=== PATIENT | female | born 1995 | race Caucasian/White ===

== ENCOUNTER 2024-11-19 16:32 | Inpatient (IN) | payer BC, SELFPAY ==
[2024-11-19] VITALS (42 sets, daily range): BP systolic 97–147; BP diastolic 50–74; PULSE 70–107; RESP 16–18; TEMP 36.7–37.1; O2SAT 99–100; BMI 28.2
[2024-11-19] MEDS: AMPICILLIN 2 GM in 0.9 % SODIUM CHLORIDE Mini-bag 100 ML IVPB (17:14)
[2024-11-19 17:18] LABS: Basophils Percent Auto 0.2 % (0.0-3.0); Hematocrit 31.2 % (33.0-51.0); Hemoglobin* 10.8 gm/dL (12.0-16.0); Immature Granulocytes Pct Auto 0.7 %; Lymphocytes Percent Auto 6.3 % (20-44); Mean Corpuscular HGB Conc 35 gm/dL (32-36); Mean Corpuscular Hemoglobin 31 pg (26-34); Mean Corpuscular Volume 89 fL (80-100); Neutrophils Percent Auto 87.8 % (42.0-72.0); Platelet Count* 202 K/uL (140-440); RDW Coefficient of Variation % 12.9 % (11.5-15.5); Red Blood Count 3.51 m/uL (4.00-5.20)
[2024-11-19 17:39] LABS: Slide Review Reflex Yes; White Blood Count* 26.57 K/uL (4.50-11.00)
--- NOTE | 2024-11-19 17:52 | PM.OBHPLI ---
OB - H&P: HPI Labor/Induction History of Present Illness Time Seen by Provider: 17:53 Date Seen: 11/19/24 Chief Complaint: The patient is a 29 year old 6 para 2 at 37 4/7 weeks gestation by LMP c/w 11WK US, who presents from clinic transitioning into active labor. Chief complaint: Maternity : 6 Para: 2 Date of last menstrual period: 03/01/24 Estimated date of delivery: 12/06/24 Gestational age based on last menstrual period: 37 Narrative: Christine Cruz is a 29 year old 6 para 2 at 37 4/7 weeks gestation by LMP c/w 11WK US, who presents from clinic transitioning into active labor. pt was seen for routine visit today in clinic this afternoon and reported contractions started last night. Has overall tight feeling that is constant in lower abdomen and back and then feels 30 sec contraction about every hour. 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 Then noticed again upon waking up this morning. Notices more as working today and active. No LOF. +FM. Headache last night resolved on own. Had influenza couple weeks ago, resolved. pt was checking in clinic and was 2.5/70/-3, posterior. She was placed on monitor and FHT's 140's with moderate variability with accels but not 2 in 20 min. There as possible prolonged decel that appeared initially like change in baseline slowly decreasing to 120 and staying there for 4minutes then increasing back to 140's. No other decels. Contractions every 2-5min and pt feeling She was rechecked 1 hour later and 3/80/-2. pt sent to L&D for admission History of Present Dating criteria: based on LMP care: good care Ultrasounds: normal 1st trimester US (11 wk US c/w with LMP, subchorionic hermorrage ) and abnormal US findings (initial antomy scan with HC 7%. Declined level 2, repeat level 1 US with HC 23%) complications comment: hx delivery, had serial cervical length US 14-24wks wnl Medical complications: none Labs Blood type: A (-) negative Rubella: immune RPR/VDLR: nonreactive GBS status: positive HBsAG: negative Meds Home Medications and Allergies Home Medications ?Medication ?Instructions ?Recorded ?Confirmed ?Type docosahexaenoic acid PO 11/19/24 History ferrous sulfate 325 mg (65 mg 325 mg PO DAILY 11/19/24 11/19/24 History iron) tablet (FeroSul) Allergies Allergy/AdvReac Type Severity Reaction Status Date / Time No Known Drug Allergies Allergy Verified 11/19/24 17:04 OB - H&P: Exam Physical Exam: Vital signs: Temp Pulse BP Pulse Ox 98.5 F 107 H 132/64 99 11/19/24 16:55 11/19/24 16:48 11/19/24 16:48 11/19/24 16:55 Constitutional: Constitutional: no acute distress (between contractions, uncomfortable with contractions) Routine HEENT Exam: Head: Present atraumatic and normal inspection Eye: Present normal appearance ENT: Present mucous membranes moist Routine Respiratory Exam: Respiratory: Present CTA bilaterally Routine Cardiovascular Exam: Cardiovascular: RRR Routine Abdominal Exam: Abdominal: Absent tenderness Detailed Labor and Delivery Exam: Patient Gravid: Yes Dilation (cm): 3 Effacement (%): 80 Cervix position: mid Consistency: medium Contraction frequency (min): 2 Fetus (Single): Station: -2 Amniotic Membrane Status: intact Heart Rate Baseline: 135 Monitor Accelerations: Present Monitor Decelerations: None (initially on monitor on arrival had approximately 12min period with minimal variability and ?2 subtle late decels. resolved and over next hour good variability and no further late decels) Rolled Gold Plater Variability: Moderate (6-25) OB - Results Labs Labs: Short CBC 11/19/24 Range/Units 17:10 WBC 26.57 H* (4.50-11.00) K/uL Hgb 10.8 L (12.0-16.0) gm/dL Hct 31.2 L (33.0-51.0) % Plt Count 202 (140-440) K/uL OB - Problem Based A/P Additional Plan (1) Term : Status: Acute (2) Positive GBS test: Status: Acute Plan Transitioning into active labor at clinic, admit with expectant management. GBS positive, abx started
[2024-11-19 18:07] LABS: Slide Review Acceptable Review (Acceptable)
[2024-11-19] MEDS: LACTATED RINGERS 1000 ML 1,000 ML 500 ML IV ×2 (18:31→21:12)
--- NOTE | 2024-11-19 20:57 | PM.OBPNL ---
Subjective Time Seen by Provider: 20:35 Date Seen: 11/19/24 Narrative: pt reports contractions seem to be spreading apart some, still feels but not seem as strong or frequent. When first arrived L&D reports noted golf ball sized blood clot when used bathroom. She flushed, RN was not able evaluate. No further clots. pad with little blood but not much per pt. 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 Not persistent) Plan Plan: Cervix slowly changing discussed expectant management vs option AROM. pt would like AROM after she gets epidural. Will wait until has had abx for 4 hours as well. pt in agreement with plan.
[2024-11-19] MEDS: AMPICILLIN 1 GM in 0.9 % SODIUM CHLORIDE Mini-bag 100 ML IVPB (21:11)
[2024-11-19] MEDS: LIDOCAINE 2% (PF) 5 ML VIAL EPIDURAL (21:31)
[2024-11-19] MEDS: ROPIVACAINE 0.2% 100 ml 100 ML 12 MG EPIDURAL (21:35)
--- NOTE | 2024-11-19 21:39 | PM.ANBPRC ---
PFSH PFS Surgical History (Updated 11/19/24 @ 18:14 by Sravani Oconnor DO) Caret teeth extracted ?K08.409 - Partial loss of teeth, unspecified cause, unspecified class (ICD-10) Social History Smoking Status: Former smoker Meds Home Medications and Allergies Home Medications ?Medication ?Instructions ?Recorded ?Confirmed ?Type docosahexaenoic acid PO 11/19/24 History ferrous sulfate 325 mg (65 mg 325 mg PO DAILY 11/19/24 11/19/24 History iron) tablet (FeroSul) Allergies Allergy/AdvReac Type Severity Reaction Status Date / Time No Known Drug Allergies Allergy Verified 11/19/24 17:04 Results Labs Labs: Laboratory Results - last 24 hr 11/19/24 17:10 WBC 26.57 H* RBC 3.51 L Hgb 10.8 L Hct 31.2 L MCV 89 MCH 31 MCHC 35 RDW Coeff of Vitaliy 12.9 Plt Count 202 Neut % (Auto) 87.8 H Lymph % (Auto) 6.3 L [place] % (Auto) 5.0 Eos % (Auto) 0.0 Baso % (Auto) 0.2 Neut # (Auto) 23.30 H Lymph # (Auto) 1.70 [place] # (Auto) 1.30 H Eos # (Auto) 0.00 Baso # (Auto) 0.10 Abs Immat Gran (auto) 0.20 Imm/Tot Granulo (auto) 0.7 Diff Slide Review Acceptable Review Blood Type A Negative Antibody Screen POSITIVE Vital Signs Vital Signs: Last Vital Signs Temp 98.2 F 11/19/24 20:31 Pulse 92 11/19/24 21:37 Resp 16 11/19/24 20:31 BP 118/65 11/19/24 21:37 Pulse Ox 100 11/19/24 21:35 Weight: 79.424 kg Height: 167.64 cm Anesthesia Procedures Epidural Insertion Patient Location: OB Start Time: 21:15 Stop Time: 21:45 Start Date: 11/19/24 Stop Date: 11/19/24 Reason for Block: primary anesthetic Patient Position: sitting Performed By: Jean-Pierre Baumann Preanesthetic Checklist: IV checked, risks and benefits discussed, surgical consent, monitors and equipment checked, pre-op evaluation, timeout performed and anesthesia consent Prep: chlorhexidine gluconate Monitoring: blood pressure monitoring, panel monitor, continuous pulse oximetry and heart rate Approach: midline Vertebral Space: lumbar (1-5) Needle Type: Tuohy needle Injection Technique: continuous catheter (catheter) Needle gauge: 17 Needle Length (cm): 10 cm Needle Insertion Depth (cm): 5 Catheter Gauge: 19 Catheter Type: multi-orifice Catheter at skin depth (cm): 10 Test Dose Result: negative and lidocaine 1.5% with epinephrine 1 to 200,000
[2024-11-19] MEDS: PHENYLEPHRINE 100 MCG/ML SYRINGE IVP ×5 (21:48→22:49)
--- NOTE | 2024-11-19 22:28 | PM.OBPNL ---
Subjective Time Seen by Provider: 10:15 Date Seen: 11/19/24 Narrative: Epidural in place, pt comfortable but still feels some contraction on right side. 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 Not persistent) Plan Plan: -epidural in place -AROM with clear fluid -RN gave 3 doses phenylephrine for low bp per RN. Now after switching positions, BP up for first time at 2219, 5 min prior was 116/64, and 4 min later repeat is 99/57. Monitor for now. -expectant management
[2024-11-19] MEDS: ePHEDrine sulfate 5 MG/ML inj 10 MG IVP (22:53)
[2024-11-20] VITALS (32 sets, daily range): BP systolic 83–142; BP diastolic 50–76; PULSE 60–100; RESP 16–18; TEMP 36.3–37.1; O2SAT 99–100
[2024-11-20] MEDS: LACTATED RINGERS 1000 ML 1,000 ML 125 ML IV (00:18)
[2024-11-20] MEDS: ePHEDrine sulfate 5 MG/ML inj 10 MG IVP (00:26)
[2024-11-20] MEDS: AMPICILLIN 1 GM in 0.9 % SODIUM CHLORIDE Mini-bag 100 ML IVPB (01:24)
[2024-11-20] MEDS: OXYTOCIN 30 unit/500 ML in NS 30 UNIT/500 ML BAG 300 UNIT IVPB (03:23)
--- NOTE | 2024-11-20 04:00 | W.PM.VAGDEL1 ---
Procedure Delivery date: 11/20/24 Procedure Done: Global Procedure Details: The patient is a 29 year-old admitted on 37 at 5 Weeks, 7 Days gestation for early labor.? Cervical exam on admission was 3 cm/80 % effaced/-2 station with membranes intact in vertex presentation.? Contractions were every 2-5 minutes.? heart rate demonstrated baseline 140 bpm with moderate variability, + accelerations, a few late decelerations initially.?Pt slowly progressed initially and requested epidural prior to AROM. AROM occurred at 2114 with clear fluid. ? Labor Analgesia:? Epidural ? Pitocin:? no ? Labor onset:? 2032 ? Complete:? 305 ? Pushing:? 309 ? heart tones during second stage were 140bpm with decel with pushing down to 110, improved to baseline between pushes ? At 321 a viable male delivered in vertex presentation over intact perineum via spontaneous vaginal delivery.? was placed on maternal abdomen.? Cord was clamped and cut after a 60 second delay.? Nose and mouth were bulb suctioned.? Infant weight pending.? 9 at 1 minute and 9 at 5 minutes.? Shoulder dystocia: no.? Nuchal cord: no. ? Placenta delivered spontaneously and complete at 0339 with a 3 vessel cord. ? Mother and were stable after delivery. ? Lacerations:? 2nd degree midline, repaired with 3-0vicryl by standard technique, +anterior labial abrasions, hemostatic and not repaired ? Blood loss: 150 mL. Blood loss measurement type: QBL ? Sponge and needles counts are correct. Estimated blood loss (mL): 150 Anesthesia type: Epidural [place] Infant Gender: Male presentation: vertex Placental Delivery Description: Spontaneous Cord Description: 3 Vessels total score - 1 minute: 9 total score - 5 minute: 9
[2024-11-20] MEDS: IBUPROFEN 600 MG TABLET PO (04:53)
--- NOTE | 2024-11-20 09:55 | PM.ANPOST ---
Post Anesthesia Note Post Anesthesia Note Patient seen: Inpatient Respiratory Status: adequate Cardiovascular Status: adequate Mental Status: baseline Pain: adequate Temp: baseline Anesthetic awareness: N/A Complications: none Follow care: none
[2024-11-21 05:10] VITALS: BP 114/72; PULSE 65; RESP 16; TEMP 36.6; O2SAT 99
[2024-11-21 07:04] LABS: Hemoglobin* 10.8 gm/dL (12.0-16.0)
[2024-11-21 07:30] VITALS: BP 112/71; PULSE 60; RESP 18; TEMP 36.5; O2SAT 99
--- NOTE | 2024-11-21 07:45 | PM.OBDSVD1 ---
DS: Providers Provider Time Seen by Provider: 07:45 Date Seen: 11/21/24 Date of admission: 11/19/24 16:32 Primary care physician: Sravani Oconnor DO Admitting Clinician: Sravani Oconnor DO Attending Physician on discharge: Sravani Oconnor DO DS: Diagnosis Discharge Diagnosis (1) (normal spontaneous vaginal delivery): Status: Acute (2) Term : Status: Acute Exam Const: Vital Signs, click to edit/add: Vital Signs - 24 hr 11/20/24 08:30 11/20/24 12:00 11/20/24 15:41 Temperature 97.5 F L 97.4 F L 97.9 F Pulse Rate [Blood Pressure Cuff] 60 75 80 Respiratory Rate 18 18 18 Blood Pressure [Le ft Arm] 104/67 101/54 L 107/68 Pulse Oximetry Oxygen Delivery Me thod Room Air Room Air Room Air 11/20/24 20:34 11/20/24 23:46 11/21/24 05:10 Temperature 98.3 F 97.6 F 97.9 F Pulse Rate [Blood Pressure Cuff] 73 65 65 Respiratory Rate 16 16 16 Blood Pressure [Le ft Arm] 120/76 112/72 114/72 Pulse Oximetry 99 99 99 Oxygen Delivery Me thod Room Air Room Air Room Air Documenting provider has reviewed patient's vital signs: yes Common normals: no apparent distress and healthy appearing General appearance: cooperative and comfortable : Uterus: U/1 and firm OB - DS: Summary Hospital Course Hospital Course: The patient is a 29 year old G 6 P 2 at 97 5/7 weeks gestation that was admitted to the [facility] on 11/19/24 for early labor. She had an uncomplicated vaginal delivery. She delivered a viable male . She is breast feeding. the patient has done well. Voiding, stooling/ambulating. lochia mild. Would like to go home today Peripartum Data Infant delivery method: Vaginal Laceration description: Perineal - 2nd Degree complications: none [place] Gender: Male Time Spent with Patient Time attestation: Total time spent providing and/or coordinating discharge services: Discharge Plan Discharge Disposition: Home, Self-Care Date of Admission: 11/19/24 16:32 Primary Care Provider: Sravani Oconnor Condition: Stable Anticipated Discharge Date/Time: 11/21/24 07:51 Discharge Medications: Continued ferrous sulfate [FeroSul] 325 mg (65 mg iron) tablet 325 mg PO DAILY docosahexaenoic acid [ DHA] 1 cap PO DAILY Discharge Orders: Discharge Order (Routine); Ordered 11/21/24 Ordered By: Sravani Oconnor Patient Education: OB Vaginal/Breast Feeding Diet Detail: Start vitamin d 4000IU daily while Follow Up Appointments: Sravani Oconnor, DO [Primary Care Provider] - (6 week visit) Forms: [facility] Instructions
[2024-11-21 14:38] LABS: Rapid Plasma Reagin (RPR) Non Reactive (Non Reactive)
== END 2024-11-21 08:24 | disposition home or self-care (01) | DRG 560 ==
PROVIDERS: Admitting Provider Family Medicine; PCP Family Medicine; Visit Provider Family Medicine
DX: O99.824 Streptococcus B carrier state complicating childbirth (principal); O70.1 Second degree perineal laceration during delivery; Z3A.37 37 weeks gestation of pregnancy; Z37.0 Single live birth
CPT/HCPCS: 01967; 36415; 85018; 85025; 86592; 86850; 86870; 86880; 86900; 86901; 86905; 86906; A9270; J0290; J2371; J2795; J7120